=== PATIENT | female | born 1950 ===

== ENCOUNTER 2022-05-19 09:06 | Day surgery (SDC) | payer OTHER ==
[~2022-05-19] VITALS: Ht 157.5 cm; Wt 100.7 kg
[~2022-05-19 09:06] MED LIST: AMLODIPINE-OLM1 EAC3 PO; ATORVASTATIN CA20 MG PO; CLONAZEPAM2 M1 PO; DIOVAN160 M1 PO; ESTAZOLAM2 MG; GLIPIZIDE XL5 MG; IRBESARTAN-HCT1 EACH; METFORMIN HCL850 MG; MONTELUKAST; PANTOPRAZOLE SO40 M2 PO; PENTOXIFYLLINE400 MG PO; RESTORIL30 M1; SYNTHROID75 MCG; SYNTHROID88 MCG; TRENTAL
== END 2022-05-19 16:35 | disposition home or self-care (01) ==
LOC: CIR.AMB 09:06
PROVIDERS: ATTEND Colon & Rectal Surgery
DX: R15.9 Full incontinence of feces (principal); Z91.013 Allergy to seafood; I10 Essential (primary) hypertension; E11.9 Type 2 diabetes mellitus without complications; E03.9 Hypothyroidism, unspecified; J45.909 Unspecified asthma, uncomplicated; K21.9 Gastro-esophageal reflux disease without esophagitis
CPT/HCPCS: 64590; 95971; L8679